=== PATIENT | female | born 1995 | race Caucasian/White ===

== ENCOUNTER 2017-09-06 12:28 | Emergency (ER) | payer OTHER ==
[~2017-09-06] VITALS: Ht 157.5 cm; Wt 70.5 kg
[2017-09-06 12:45] VITALS: BP 123/82
--- NOTE | 2017-09-06 12:50 | NUR ---
PT SENT TO LOBBY TO WAIT FOR ED BED.
--- NOTE | 2017-09-06 13:00 | NUR ---
PT TAKEN TO BED 3.
--- NOTE | 2017-09-06 13:10 | NUR ---
PATIENT PRESENTS TO ED WITH COMPLAINTS OF COUGH, HEADACHE, N/V X 1 WEEK. PATIENT STATES SHE FEELS VERY WEAK. PATIENT REPORTS N/V. SKIN IS PINK/WARM/DRY; AAOX4 WITH EVEN AND STEADY GAIT; LUNGS CLEAR BL; HR EVEN AND REGULAR; PT DENIES ANY FEVER, CP; PATIENT STATES PAIN OF 9/10 AT THIS TIME; VSS; PATIENT POSITIONED FOR COMFORT; HOB ELEVATED; BEDRAILS UP X1; BED DOWN. ER MD MADE AWARE OF PT STATUS.
[2017-09-06] MEDS ORDERED: cefTRIAXone 1,000 MG in LIDOCAINE 1% ***ER ONLY *** 2.1 ML IM ONE (13:30)
[2017-09-06] MEDS ORDERED: DEXAMETHASONE 10 MG/ML VIAL IM ONE (13:30)
[2017-09-06] MEDS ORDERED: ALBUTEROL SULFATE/IPRATROPIU 3 ML SOL IH ONE (13:30)
[2017-09-06] MEDS ORDERED: cefTRIAXone 1,000 MG VIAL ONE (13:43)
[2017-09-06] MEDS ORDERED: LIDOCAINE MPF 1% - **ER/OR** 5 ML ONE (13:44)
[2017-09-06 13:57] LABS: BARBITURATE, URINE NEG. ng/ml (NEG <=200); BENZODIAZEPINE, URINE NEG. ng/mL (NEG <=200); CANNABINOID, URINE NEG. ng/mL (NEG <=50); COCAINE, URINE NEG. ng/mL (NEG <=300); OPIATE, URINE NEG. ng/mL (NEG <=2000); PHENCYCLIDINE SCREEN,URINE NEG. ng/mL (NEG <=25)
[2017-09-06 16:00] VITALS: BP 118/78
--- NOTE | 2017-09-06 16:00 | NUR ---
Patient discharged with v/s stable. Written and verbal after care instructions given and explained. Patient alert, oriented and verbalized understanding of instructions. Ambulatory with steady gait. All questions addressed prior to discharge. ID band removed. Patient advised to follow up with PMD. Rx of PREDNISONE AND ZITHROMAX given. Patient educated on indication of medication including possible reaction and side effects. Opportunity to ask questions provided and answered.
== END 2017-09-06 16:00 | disposition home or self-care (01) ==
LOC: MED 12:28
DX: J32.9 Chronic sinusitis, unspecified (principal); J40 Bronchitis, not specified as acute or chronic
CPT/HCPCS: 71046; 80305; 94640; 94760; 96372; 99285; J0696; J1100; J2001; J7620